=== PATIENT | male | born 1940 | race Caucasian/White ===

== ENCOUNTER 2024-08-19 07:46 | Day surgery (SDC) | payer MEDICARE, BC ==
[~2024-08-19] VITALS: Ht 175.3 cm; Wt 73.4 kg
[2024-08-19] VITALS (8 sets, daily range): BP systolic 127–149; BP diastolic 64–87; PULSE 57–63; RESP 11–15; O2SAT 95–99
[~2024-08-19 07:46] MED LIST: ASPI-257 PO; BETA1TAB20 PO; NIAC1CAP PO; OMEG1CAP2 PO; SIMV-45 PO; UBID1CAP54 PO
--- NOTE | 2024-08-19 08:22 | ELECTROCARDIOGRAPH REPORT ---
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 HARI Livingston Measurements Intervals Price Rate: 82 P: 33 WA: 158 QRS: 29 QRSD: 131 T: 15 QT: 404 QTc: 472 Interpretive Statements Sinus rhythm Ventricular bigeminy Right bundle branch block Electronically Signed On 08-19-2024 17:57:[address] HARI Livingston Please click the below link to view image of tracing.
[2024-08-19] MEDS ORDERED: LOSA50TA64 PO (08:31)
[2024-08-19] MEDS ORDERED: EZET10TA48 PO (08:31)
[2024-08-19] MEDS ORDERED: APIX5TAB3 PO (08:31)
[2024-08-19] MEDS ORDERED: EVOL140P3 SQ (08:31)
[2024-08-19 09:01] LABS: BASOPHILS # (AUTO) 0.1 X10'3 (0-0.2); BASOPHILS % (AUTO) 1.2 % (0-1); EOSINOPHILS # (AUTO) 0.2 X10'3 (0-0.9); EOSINOPHILS % (AUTO) 3.8 % (0-6); HEMATOCRIT 46.3 % (42.0-52.0); HEMOGLOBIN 15.9 g/dl (14.0-17.9); LYMPHOCYTES # (AUTO) 1.6 X10'3 (1.1-4.8); LYMPHOCYTES % (AUTO) 25.2 % (21-51); MEAN CORPUSCULAR HEMOGLOBIN 31.7 PG (27.0-31.0); MEAN CORPUSCULAR HGB CONC 34.4 g/dL (33.0-36.5); MEAN CORPUSCULAR VOLUME 92.3 FL (78-98); MEAN PLATELET VOLUME 7.8 FL (7.4-10.4); MONOCYTES # (AUTO) 0.5 X10'3 (0-0.9); MONOCYTES % (AUTO) 8.8 % (2-12); NEUTROPHILS # (AUTO) 3.8 X10'3 (1.8-7.7); PLATELET COUNT 223 X10'3 (140-440); RED BLOOD COUNT 5.02 X10'6 (4.70-6.10); RED CELL DISTRIBUTION WIDTH 13.1 % (11.5-14.5); WHITE BLOOD COUNT 6.2 X10'3 (4.5-11.0)
[2024-08-19 09:13] LABS: ALBUMIN 3.7 G/DL (3.4-5.0); ANION GAP 5 (8-16); BLOOD UREA NITROGEN 15 MG/DL (7-18); BUN/CREATININE RATIO 12.5 (10.0-20.0); CHLORIDE 103 MMOL/L (99-107); GLUCOSE 118 MG/DL (70-104); MAGNESIUM 2.1 MG/DL (1.5-2.4); POTASSIUM 4.3 MMOL/L (3.5-5.1); SODIUM 139 MMOL/L (135-145); TOTAL CARBON DIOXIDE 30.6 MMOL/L (24-32); eCRCL 48 ML/MIN; eGFR 58 ML/MIN
[2024-08-19 09:16] LABS: PROTHROMBIN TIME 9.9 SECONDS (9.0-12.0)
[2024-08-19] MEDS: diphenhydrAMINE 25mg capsule PO PRN (10:21)
[2024-08-19] MEDS: normal saline 1,000 ML IV SCH (10:21)
[2024-08-19] MEDS: sodium bicarbonate 1meq/ml syr 150 ML in dextrose 5%-water 1,000 ML IV ONE (10:22)
[2024-08-19] MEDS ORDERED: LIDOcaine 1% 30ml preserv. free vial ONE (11:11)
[2024-08-19] MEDS ORDERED: iohexol 350 MG/ML 50ML vial IV ONE (11:12)
[2024-08-19] MEDS ORDERED: fentaNYL/PF 50MCG/1 ML 2ML syringe ONE (11:12)
[2024-08-19] MEDS ORDERED: iohexol 350MG/ML 100ml bottle IV ONE ×2 (11:12→12:05)
[2024-08-19] MEDS ORDERED: midazolam 1 mg/ML 2ml injection ONE (11:12)
[2024-08-19] MEDS ORDERED: heparin 1,000unit/ml 10ml vial 10 ML ONE (11:12)
[2024-08-19] MEDS ORDERED: LIDOcaine 2% (20 mg/ml) 5ml cardiac syringe ONE (11:55)
[2024-08-19] MEDS ORDERED: clopidogrel 300mg tablet ONE (12:29)
[2024-08-19] MEDS ORDERED: HYDROcodone/acetaminophen 5mg/325mg tablet PO PRN (13:05)
[2024-08-19] MEDS ORDERED: ondansetron/PF 4mg/2ml inj IV PRN (13:05)
[2024-08-19] MEDS ORDERED: proCHLORperazine 10 MG/2 ml inj IV PRN (13:05)
[2024-08-19] MEDS ORDERED: HYDROcodone/acetaminophen 10/325mg tab PO PRN (13:05)
[2024-08-19] MEDS ORDERED: CLOP75TA34 PO (13:21)
[2024-08-19] MEDS ORDERED: CLOP75TA33 PO (13:24)
--- NOTE | 2024-08-19 17:27 | CARDIOLOGY REPORT ---
DATE OF SERVICE: 08/19/2024 DICTATING PHYSICIAN: MARCELLA PERLA DO CARDIAC CATHETERIZATION REPORT REFERRING PHYSICIAN: Coral Foote MD CLINICAL HISTORY: This 83-year-old man is status post two-vessel CABG in 2003. He received a SMART to the mid distal LAD and an SVG to the principal LAD diagonal. Recently, he has had rather sudden onset of exertional dyspnea and marked fatigue with activity. He is not experiencing angina, but given how long it has been since his bypass surgery, a cardiac catheterization was ordered. PROCEDURES PERFORMED: * Left heart catheterization. * Left ventriculography. * Selective coronary arteriography. * Selective opacification of a saphenous vein graft. * Selective opacification of a left internal mammary graft. * PTCA/stent placement (distal right coronary artery). * Percutaneous arteriotomy closure (Perclose). * 60 minutes conscious sedation and supervision. DESCRIPTION OF PROCEDURE: The patient was sedated with fentanyl and Versed. He was then prepared and draped in the usual manner. The right inguinal area was infiltrated with 1% lidocaine. Using a micropuncture set and a Seldinger technique, a 7-Gu[place] sheath was placed in the common femoral artery. 3000 units of heparin were given. Left heart catheterization and left ventriculography were performed using a 6-[place]ian pigtail catheter. Coronary arteriography was performed using #4 left and right Cory catheters. Selective opacification of the saphenous vein graft and the left internal mammary artery were accomplished using the #4 right Cory catheter. PTCA/STENT PLACEMENT: An additional 7000 units of heparin were given. The right coronary was ultimately engaged with a 0.75 AL side hole 6-[place]ian guiding catheter. A Choice PT2 guidewire was passed down through the mainstem LAD and across 70% and 90% stenoses in the distal right coronary. These lesions were then directly stented using a 2.25 x 34 mm Carlos [place] drug-eluting stent deployed at 18 atmospheres. After test injections demonstrated stability of the treated areas, final arteriography was performed. RESULTS: HEMODYNAMIC DATA: The left ventricular end diastolic pressure was 20 mmHg. There was no gradient across the aortic valve. LEFT VENTRICULOGRAM: The left ventriculogram was technically satisfactory. The patient was in ventricular bigeminy at the time. The ejection fraction was difficult to assess, but it appeared to be about 40%-45%. There was no mitral regurgitation. CORONARY ARTERIOGRAPHY: The coronary arteriograms were technically satisfactory. The patient appeared to have a codominant system. LEFT MAIN CORONARY ARTERY: The left main was a large unobstructed vessel bifurcating into left anterior descending and circumflex coronary arteries. LEFT ANTERIOR DESCENDING CORONARY ARTERY: The LAD appeared to be a large vessel proximally, but it was occluded just after the takeoff of a medium-sized bifurcated branch, which had the distribution of an intermediate artery. This branch was unobstructed. CIRCUMFLEX CORONARY ARTERY: The circumflex was a large mainstem vessel. There was a very small first obtuse marginal, a small to medium-sized second obtuse marginal, a large third obtuse marginal, and 2 small posterolateral branches. Of note, the atrioventricular groove vessel appeared to come off the terminal portion of the atrioventricular groove vessel. RIGHT CORONARY ARTERY: The right coronary artery was a medium-sized mainstem vessel. There was a medium-sized posterior descending branch and one tiny posterolateral branch. Distally, there was about a 50%-70% stenosis followed by a 90% stenosis leading into the PDA. SELECTIVE OPACIFICATION OF BYPASS GRAFTS: The SMART to mid LAD was patent and unobstructed. Saphenous vein graft to the principal (bifurcated) LAD diagonal was patent and unobstructed. PTCA/STENT PLACEMENT: Following direct stenting of the 2 lesions in the distal right coronary, there was no significant residual stenosis and brisk runoff distally. CONCLUSIONS: * Old obstructive coronary artery disease manifested as a 100% proximal occlusion of the LAD. * 50%-70% and 90% stenoses in the distal mainstem right coronary. * Successful stenting of the 2 lesions involving the distal right coronary. Following the intervention, there was no significant residual stenosis. NOAH flow before and after was graded as 3. * Both bypass grafts were patent. There were no lesions in the grafts and no obstructive disease beyond the distal anastomoses. These were as follows: A. SMART to mid distal LAD. B. SVG to principal LAD diagonal. B. Left ventricular function was difficult to assess because of ventricular bigeminy, but with what appeared to be 2 successive sinus beats, the estimated LVEF was 40%-45%. RECOMMENDATIONS: Ongoing medical therapy. MARCELLA PERLA DO TID: [id number] RECEIPT: [id number] ISRA/CHRISTIANO MIRAMONTES
== END 2024-08-19 16:15 | disposition home or self-care (01) ==
LOC: SSTAY O 07:46
PROVIDERS: ATTEND Internal Medicine Cardiovascular Disease
DX: I25.118 Atherosclerotic heart disease of native coronary artery with other forms of angina pectoris (principal); I45.10 Unspecified right bundle-branch block; Z95.1 Presence of aortocoronary bypass graft; Z95.5 Presence of coronary angioplasty implant and graft; I49.3 Ventricular premature depolarization; I42.7 Cardiomyopathy due to drug and external agent; I48.3 Typical atrial flutter; I10 Essential (primary) hypertension; E78.5 Hyperlipidemia, unspecified; Z79.899 Other long term (current) drug therapy
CPT/HCPCS: 36415; 80048; 83735; 85025; 85610; 93005; 93459; 99152; 99153; A6258; C1725; C1751; C1760; C1769; C1874; C1894; C9600; J1644; J2003; J2250; J3010; J3490; J7030; J7070; Q0163; Q9967; Z7610